=== PATIENT | male | born 1950 | race Caucasian/White ===

== ENCOUNTER 2019-09-22 05:38 | Day surgery (SDC) ==
[2019-09-17 11:14] LABS: Basophils % 0.7 % (0.0-0.8); Eosinophils # 0.2 10*3/uL (0.0-0.87); Eosinophils % 3.1 % (0.00-10.9); Hemoglobin 14.8 GM/DL (14.0-18.0); Immature Granulocytes % 0.3 %; Immature Granulocytes Absolute 0.02 #; Lymphocytes # 1.2 10*3/uL (1.4-4.0); Lymphocytes % 20.4 % (21.2-54.2); Mean Corpuscular HGB Conc 33.6 GM/DL (32-36); Mean Platelet Volume 10.9 FL (9.6-12.0); Monocytes % 8.5 % (1.7-12.7); Platelet Count 192 T/CUMM (130-400); Red Blood Count 4.73 MC/CUMM (3.8-5.5); Red Cell Distribution Width 14.1 % (9.3-17.3); White Blood Count 5.9 T/CUMM (4-12)
[2019-09-17 11:21] LABS: Apearance,Urine CLEAR (Clear); Bilirubin,Urine Negative (Negative); Blood, Urine Small mg/dL (Negative); Glucose,Urine (UA) Negative (Negative); Ketones,Urine Negative (Negative); Mucus,Urine Occasional /LPF (Occasional); Nitrite,Urine Negative (Negative); Protein,Urine Negative; RBC,Urine 1 /HPF (0-4); Squamous Epithelial Cell,Urine Occasional /HPF (0-10); Urine Color Straw (Yellow); Urine Specific Gravity 1.009 (1.001-1.035); Urine Urobilinogen < 2.0 EU/DL (0.2-1.0); WBC,Urine 1 /HPF (0-6)
[2019-09-17 11:24] LABS: PT Patient Result 10.9 SECS (9.8-11.9); Partial Thromboplastin Time 32.8 SECS (23.9-33.8)
[2019-09-17 11:36] LABS: Albumin 3.9 G/DL (3.4-5.0); Bilirubin,Total 0.6 MG/DL (0.2-1.0); Calcium 8.8 MG/DL (8.5-10.1); Osmolality,Calculated 274.8 MOS/KG (273-304); Total Protein 6.9 G/DL (6.4-8.3)
[2019-09-22] MEDS ORDERED: ceFAZolin 1,000 MG in SYRINGE 1 EACH IV ONE (06:00)
[2019-09-22] MEDS ORDERED: VANCOMYCIN INJ 1,000 MG in SODIUM CHLORIDE 0.9% 250 ML IV ONE (06:00)
[2019-09-22] MEDS ORDERED: DIAZEPAM 5 MG TABLET PO ONE (06:35)
[2019-09-22] MEDS ORDERED: GABAPENTIN 400 MG CAPSULE PO ONE (06:35)
[2019-09-22] MEDS ORDERED: ACETAMINOPHEN 500 MG TABLET PO ONE (06:35)
[2019-09-22] MEDS ORDERED: FAMOTIDINE 20 MG TABLET PO ONE (06:35)
[2019-09-22] MEDS ORDERED: DEXAMETHASONE 4 MG/1 ML VIAL ONE (06:36)
[2019-09-22] MEDS ORDERED: ROPIVACAINE 0.5% 30 ML VIAL ONE (06:36)
[2019-09-22] MEDS ORDERED: ceFAZolin 1,000 MG VIAL ONE (06:47)
[2019-09-22] MEDS ORDERED: ACETAMINOPHEN 500 MG TABLET ONE (06:47)
[2019-09-22] MEDS ORDERED: FAMOTIDINE 20 MG TABLET ONE (06:47)
[2019-09-22] MEDS ORDERED: VANCOMYCIN 1,000 MG VIAL ONE (06:47)
[2019-09-22] MEDS ORDERED: GABAPENTIN 400 MG CAPSULE ONE (06:47)
[2019-09-22] MEDS ORDERED: LACTATED RINGERS 1,000 ML IV SCH (07:00)
[2019-09-22] MEDS ORDERED: TRANEXAMIC ACID 1,000 MG/10 ML VIAL ONE (07:43)
[2019-09-22] MEDS ORDERED: BACITRACIN OINT 0.9 GM PACK TOP ONE (08:10)
[2019-09-22] MEDS ORDERED: MIDAZOLAM 2 MG/2 ML VIAL ONE (08:37)
[2019-09-22] MEDS ORDERED: PHENYLEPHRINE 1 MG/10 ML SYRINGE IV ONE (08:37)
[2019-09-22] MEDS ORDERED: fentaNYL 100 MCG/2 ML VIAL ONE (08:37)
[2019-09-22] MEDS ORDERED: MAGNESIUM HYDROXIDE SUSP 30 ML UDCUP PO PRN (08:41)
[2019-09-22] MEDS ORDERED: ONDANSETRON 4 MG/2 ML VIAL IV PRN ×2 (08:41→10:57)
[2019-09-22] MEDS ORDERED: MORPHINE 4 MG/1 ML VIAL IV PRN ×2 (08:41)
[2019-09-22] MEDS ORDERED: ZALEPLON 5 MG CAPSULE PO PRN (08:41)
[2019-09-22] MEDS ORDERED: diphenhydrAMINE CAP 25 MG CAPSULE PO PRN (08:41)
[2019-09-22] MEDS ORDERED: ONDANSETRON 4 MG/2 ML VIAL ONE (11:07)
[2019-09-22] MEDS ORDERED: HYDROmorphone 2 MG/1 ML VIAL ONE (11:07)
[2019-09-22] MEDS: HYDROmorphone 2 MG/1 ML VIAL IV PRN ×3 (11:11→13:39)
[2019-09-22] MEDS ORDERED: KETOROLAC 30 MG/1 ML VIAL ONE (11:20)
[2019-09-22] MEDS: KETOROLAC 30 MG/1 ML VIAL IV SCH ×3 (11:22→20:54)
[2019-09-22] MEDS: LACTATED RINGERS 1,000 ML IV SCH ×2 (15:00→21:00)
[2019-09-22] MEDS: DOCUSATE SODIUM 100 MG CAPSULE PO SCH ×2 (15:09→20:54)
[2019-09-22] MEDS: DULoxetine 30 MG CAPSULE PO SCH (15:09)
[2019-09-22] MEDS: ceFAZolin 2,000 MG in PREMIX 1 EACH IV SCH (16:38)
[2019-09-23] MEDS: ceFAZolin 2,000 MG in PREMIX 1 EACH IV SCH (00:06)
[2019-09-23] MEDS: LACTATED RINGERS 1,000 ML IV SCH ×2 (01:29→05:58)
[2019-09-23] MEDS: KETOROLAC 30 MG/1 ML VIAL IV SCH (04:15)
[2019-09-23] MEDS ORDERED: KETOROLAC 30 MG/1 ML VIAL IV SCH (04:30)
[2019-09-23] MEDS ORDERED: FONDAPARINUX 2.5 MG/0.5 ML SYRINGE SUBCUT SCH (06:00)
[2019-09-23 06:18] LABS: Basophils % 0.1 % (0.0-0.8); Eosinophils % 0.3 % (0.00-10.9); Hematocrit 36.2 VOL% (42.0-52.0); Immature Granulocytes % 0.4 %; Immature Granulocytes Absolute 0.04 #; Lymphocytes # 1.3 10*3/uL (1.4-4.0); Mean Corpuscular HGB Conc 33.1 GM/DL (32-36); Mean Corpuscular Volume 93.5 FL (87-102); Mean Platelet Volume 11.1 FL (9.6-12.0); Monocytes % 10.4 % (1.7-12.7); Neutrophils % 75.8 % (38.7-73.9); Platelet Count 155 T/CUMM (130-400); Red Blood Count 3.87 MC/CUMM (3.8-5.5); Red Cell Distribution Width 13.8 % (9.3-17.3)
[2019-09-23 06:41] LABS: Calcium 8.3 MG/DL (8.5-10.1); Osmolality,Calculated 280.5 MOS/KG (273-304)
[2019-09-23] MEDS ORDERED: ATORVASTATIN 10 MG TABLET PO SCH (09:00)
[2019-09-23] MEDS: DULoxetine 30 MG CAPSULE PO SCH (09:27)
[2019-09-23] MEDS: DOCUSATE SODIUM 100 MG CAPSULE PO SCH (09:28)
[2019-09-23 11:37] VITALS: BP 142/68
[2019-09-23] MEDS ORDERED: CELECOXIB 200 MG CAPSULE PO SCH (15:00)
== END 2019-09-23 16:13 | disposition home health service (06) ==
LOC: N.OR 05:38 → N.SDSINP 05:38 → INTOOBSV 08:41 → N.3E 14:50 → N.OR 09-23 16:13
PROVIDERS: ATTEND Orthopaedic Surgery